=== PATIENT | female | born 1985 | race Two or more races ===

== ENCOUNTER 2024-04-28 09:49 | Emergency (ER) | payer OTHER ==
[~2024-04-28] VITALS: Ht 157.5 cm; Wt 49.9 kg
[2024-04-28] MEDS ORDERED: CLINDAMYCIN PHOSPHATE 150 MG/ML (600mg) IM STA (10:37)
[2024-04-28] MEDS ORDERED: CLINDAMYCIN PHOSPHATE 150 MG/ML (300mg) ONE (10:43)
== END 2024-04-28 10:52 | disposition home or self-care (01) ==
LOC: ER 09:51
DX: L02.421 Furuncle of right axilla (principal)